=== PATIENT | female | born 1975 | race Caucasian/White ===

== ENCOUNTER 2018-05-12 21:03 | Emergency (ER) | payer OTHER ==
[~2018-05-12] VITALS: Ht 167.6 cm; Wt 143.0 kg
[~2018-05-12 21:03] MED LIST: ALEVE220 MG PO; AUGMENTIN 875-1 EACH PO; CALCIUM 500 +1 EACH PO; DAILY VITAMIN1 EAC2 PO; FISH OIL300 MG PO; MAGNESIUM GLUCO30 MG PO; TRAMADOL HCL50 MG PO; VITAMIN C250 MG PO; VITAMIN D-32000 UNIT PO
[2018-05-12] MEDS ORDERED: FERROUS SULFAT325 MG PO (21:11)
[2018-05-12] MEDS ORDERED: ASPIR-LOW81 MG PO (21:13)
--- NOTE | 2018-05-13 08:01 | EKG ---
[facility] [address] [facility] [place], [place] [address] Signed Sinus rhythm with short VT Nonspecific ST abnormality Abnormal ECG No previous ECGs available Confirmed by NICHOLE XAVIER MD ([id number]) on 05/13/2018 8:01:20 AM Electronically Signed By: NICHOLE XAVIER MD 05/13/18 0801 PATIENT NAME: SYLVESTER MCCALL Electrocardiogram DATE OF : 73 PHYSICIAN: NICHOLE XAVIER MD REPORT #: [id number] REPORT IS CONFIDENTIAL AND NOT TO BE RELEASED WITHOUT AUTHORIZATION
== END 2018-05-13 00:39 | disposition home or self-care (01) ==
LOC: ED 21:03
DX: R07.9 Chest pain, unspecified (principal); F17.200 Nicotine dependence, unspecified, uncomplicated; Z88.5 Allergy status to narcotic agent; Z88.2 Allergy status to sulfonamides; Z88.1 Allergy status to other antibiotic agents; Z79.899 Other long term (current) drug therapy; Z79.82 Long term (current) use of aspirin
CPT/HCPCS: 71045; 71260; 80053; 84439; 84443; 84484; 84703; 85025; 93005; 93010; 99285-25; Q9967

== ENCOUNTER 2025-02-23 12:45 | Day surgery (SDC) | payer BC ==
[~2025-02-23] VITALS: Ht 167.6 cm; Wt 58.1 kg
--- NOTE | ~2025-02-23 | OR ---
[facility] [address] [place], [place] [address] Draft DATE OF OPERATION: 02/23/2025 SURGEON: Omaira Hercules MD PREOPERATIVE DIAGNOSIS: Colon screening. POSTOPERATIVE DIAGNOSIS: Small superficial lesion of sigmoid (excised). PROCEDURE: Total colonoscopy to cecum with biopsy x1. ANESTHESIA: Intravenous sedation, fentanyl 200 mcg, Versed 11 mg. INDICATION: This very healthy 50-year-old white woman is a patient of Dr. Aneesh Stout and known to me from the past having undergone right inguinal hernia repair in 2010. She has since developed a seizure disorder, which is well controlled with medication. She is here for a screening colonoscopy. She has no symptoms of bleeding, diarrhea, or constipation and no family history of colon cancer that she is aware of. She is admitted at this time to undergo colonoscopy for screening, and understands the risk of bleeding, infection, and perforation. FINDINGS: The prep was excellent. Complete colonoscopy was undertaken of the cecum with full intubation of the cecum and good visualization of the appendiceal orifice and ileocecal valve. The only finding of note was a very superficial mucosal lesion in the sigmoid, which was excised with cold morcellation technique. DESCRIPTION OF PROCEDURE: The patient was brought to the endoscopy suite and placed in lateral decubitus position, given intravenous sedation to the point of slurred speech and nystagmus. Digital rectal examination was normal. An Olympus video colonoscope was passed in the rectum and manipulated throughout the colon ultimately intubating the cecum itself. The ileocecal valve and appendiceal orifice were normal. Scope was withdrawn from that point and examination throughout showed no sign of abnormality until the sigmoid where there was a small superficial PATIENT NAME: SYLVESTER MCCALL OPERATIVE REPORT DATE OF : 73 REPORT #: [id number] PHYSICIAN: OMAIRA HERCULES MD PCP: ANEESH STOUT DO REPORT IS CONFIDENTIAL AND NOT TO BE RELEASED WITHOUT AUTHORIZATION [facility] [address] [place], [place] [address] Draft lesion, which was probably not an adenomatous polyp. Narrow band imaging did not distinguish it much, but it certainly was distinct from the other surrounding mucosa and on that basis was excised. Further withdrawal showed no other abnormality. The scope was removed. The patient was taken to the recovery room in good condition. CONCLUDING DIAGNOSIS: Essentially normal colon to cecum saved for small mucosal lesion, now excised. PLAN: Recommend repeat colonoscopy in 10 years, sooner if symptoms should develop. I will review her pathology report on this lesion to assure that it is nothing more problematic. MD MIMI Abad/JOSÉ MIGUEL /[id number] cc: Aneesh Stout DO Copies: ANEESH STOUT DO ~ PATIENT NAME: SYLVESTER MCCALL OPERATIVE REPORT DATE OF : 73 REPORT #: [id number] PHYSICIAN: OMAIRA HERCULES MD PCP: ANEESH STOUT DO REPORT IS CONFIDENTIAL AND NOT TO BE RELEASED WITHOUT AUTHORIZATION
[~2025-02-23 12:45] MED LIST changes: +ASPIR-LOW81 MG PO; +FERROUS SULFAT325 MG PO; +IBLOOD GLUCOSE TEST STRIP 1 EA TEST VI PRN; +LACTATED RINGER'S 1,000 ML IV SCH; +LIDOCAINE HCL 1% 5 ML SDV INJ ONE; +MIDAZOLAM HCL 5 MG/5 ML VIAL IV PRN; +fentaNYL citrate 100 MCG/2 ML VIAL IV PRN
[2025-02-23 13:06] VITALS: BP 129/68
[2025-02-23] MEDS ORDERED: LAMOTRIGINE100 MG PO (13:08)
[2025-02-23] MEDS ORDERED: fentaNYL citrate 100 MCG/2 ML VIAL ONE (13:35)
[2025-02-23] MEDS ORDERED: MIDAZOLAM HCL 5 MG/5 ML VIAL ONE (13:35)
[2025-02-23] MEDS ORDERED: MIDAZOLAM HCL 2 MG/2 ML VIAL ONE (14:19)
--- NOTE | 2025-02-23 14:49 | NUR ---
02/23/25 1449 Tara Martinez 1437- PT PRESENTS TO PACU, LEFT LATERAL POSITION, REACTIVE TO STIMULUS, BUT NOT ANSWERING QUESTIONS. LR INFUSING TO RW IV. BREATHING EVEN AND NON LABORED, O2 AT 3L PER NC. ABD FLAT, FIRM, NON DISTENDED. ALL MONITORS IN PLACE. 1443- PT MOVED TO ROOM AIR. 1444- DR HERCULES AT BEDSIDE, PT WAKES AND TALKS WITH STAFF. NO SIGNS OF DISTRESS. 1448- PT WAKES EASILY TO VERBAL STIMULI. CONVERSING WITH STAFF.
[2025-02-23 15:22] VITALS: BP 112/60
--- NOTE | 2025-02-25 10:52 | PATH ---
[facility] [address] [place], [place] [address] Signed SPECIMEN(S): A SIGMOID MUCOSAL LESION SPECIMEN SOURCE: A. SIGMOID MUCOSAL LESION CLINICAL HISTORY: Screening colonoscopy, sigmoid mucosal lesion FINAL PATHOLOGIC DIAGNOSIS: Sigmoid mucosal lesion: - Benign colonic mucosa with hyperplastic features (two fragments). JVR MICROSCOPIC EXAMINATION: Histologic sections of all submitted blocks are examined by light microscopy. These findings, together with the gross examination, support the pathologic diagnosis. GROSS DESCRIPTION: The specimen, labeled and designated "Ivon sigmoid mucosal lesion," is received in formalin and consists of two majano soft tissue fragments, ranging from 0.2-0.3 cm. Entirely submitted in (A1). VB (under the direct supervision of a pathologist) The Gross Description was prepared using a voice recognition system. The report was reviewed for accuracy; however, sound-alike word errors, addition and/or deletions may occur. If there is any question about this report, please contact Client Services. ADDITIONAL NOTES: Immunohistochemical and/or in situ hybridization studies if performed in this case included appropriate positive controls that reacted as expected. This test was developed and its performance characteristics determined by [facility]. It has not been cleared or approved by the U.S. Food and Drug Administration. The FDA has determined that such clearance or approval is not necessary. This test is used for clinical purposes. It should not be regarded as investigational or for research. [facility] is certified under the Clinical Laboratory Improvement Amendments of 1988 (CLIA) as qualified to perform high complexity clinical laboratory testing. PATIENT NAME: SYLVESTER MCCALL PATHOLOGY DATE OF : 73 REPORT #: [id number] PHYSICIAN: MATT BRAN PCP: CATHERINE STOUT DO REPORT IS CONFIDENTIAL AND NOT TO BE RELEASED WITHOUT AUTHORIZATION [address] [place], [place] [address] Signed PERFORMING LABORATORY: Technical component was performed by [facility], [address] [place] [address] (CLIA# [id number]). Professional interpretation was performed by [facility] - [address] [place] [address] (CLIA#: [id number]). Diagnostician: Ashu Peoples MD Pathologist Electronically Signed 02/25/2025 Copies: ~ PATIENT NAME: SYLVESTER MCCALL PATHOLOGY DATE OF : 73 REPORT #: [id number] PHYSICIAN: MATT BRAN PCP: CATHERINE STOUT DO REPORT IS CONFIDENTIAL AND NOT TO BE RELEASED WITHOUT AUTHORIZATION
== END 2025-02-23 16:00 | disposition home or self-care (01) ==
LOC: DS 12:45
PROVIDERS: ATTEND Surgery
PROC: 0DBN8ZX Excision of Sigmoid Colon, Via Natural or Artificial Opening Endoscopic, Diagnostic (ICD-10-PCS; principal; 2025-02-23 13:45)
DX: Z12.11 Encounter for screening for malignant neoplasm of colon (principal); K63.5 Polyp of colon; G40.909 Epilepsy, unspecified, not intractable, without status epilepticus; Z87.19 Personal history of other diseases of the digestive system; Z88.5 Allergy status to narcotic agent; Z88.8 Allergy status to other drugs, medicaments and biological substances
CPT/HCPCS: 99153; G0500; J2250; J3010; J7121